=== PATIENT | female | born 1970 | race Caucasian/White ===

== ENCOUNTER 2017-11-24 18:57 | Emergency (ER) | payer OTHER ==
[2017-11-24 19:10] VITALS: TEMP 97.4
[2017-11-24] MEDS ORDERED: cloNIDine HCL 0.1 MG TAB PO STA (19:32)
--- NOTE | 2017-11-24 19:35 | ED ---
General Adult HPI - General Chief complaint: ENT Stated complaint: RT EYE PROBLEM Time Seen by Provider: 11/24/17 19:13 Source: patient Mode of arrival: ambulatory Limitations: no limitations - History of Present Illness Initial comments: 47-year-old female presents to the emergency department today for subconjunctival hemorrhage of the right eye. Patient states she was sick last week and had a bad cough. Patient states she was sitting at the table today when she looked down and her daughter noticed a red spot in her eye. She had not noticed it before because it is covered by her upper lid. Patient denies any visual changes, headaches, pain in the eye, or irritative symptom of the eye. Patient states she is not taking blood thinners. Patient states her blood pressure usually runs a little high and she was on blood pressure meds 20 years ago. Patient denies shortness of breath and chest pain. - Related Data Previous Rx's Medication Instructions Recorded Docusate [Colace] 100 mg PO DAILY #30 capsule 09/26/14 Hydrocortisone [Anusol-Hc] 1 applic RC TID #30 cream..g. 09/26/14 Magnesium Citrate [Citrate of 296 ml PO ONCE #1 bottle 09/27/14 Magnesia] Lisinopril [Prinivil] 5 mg PO DAILY #30 tablet 11/24/17 Allergies Allergy/AdvReac Type Severity Reaction Status Date / Time No Known Allergies Allergy Verified 11/24/17 19:10 Review of Systems ROS Statement: Those systems with pertinent positive or pertinent negative responses have been documented in the HPI. ROS Other: All systems not noted in ROS Statement are negative. Past Medical History Past Medical History: Hypertension Additional Past Medical History / Comment(s): hemorrhoids History of Any Multi-Drug Resistant Organisms: None Reported Past Surgical History: Orthopedic Surgery, Tubal Ligation Additional Past Surgical History / Comment(s): right leg ORIF. Past Psychological History: No Psychological Hx Reported Smoking Status: Never smoker Past Alcohol Use History: None Reported Past Drug Use History: None Reported General Exam Limitations: no limitations Head exam: Present: atraumatic, normocephalic, normal inspection Eye exam: Present: PERRL, EOMI, other (Patient has a 1 cm subconjunctival hemorrhage on the sclera of the right eye at 10-11 o'clock. No other abnormalities noted. Pupil and iris are intact.). Absent: scleral icterus, nystagmus, periorbital swelling, periorbital tenderness ENT exam: Present: normal exam, mucous membranes moist Neck exam: Present: normal inspection. Absent: tenderness, meningismus, lymphadenopathy Respiratory exam: Present: normal lung sounds bilaterally. Absent: respiratory distress, wheezes, rales, rhonchi, stridor Cardiovascular Exam: Present: regular rate, normal rhythm, normal heart sounds. Absent: systolic murmur, diastolic murmur, rubs, gallop, clicks Course Vital Signs 11/24/17 11/24/17 11/24/17 19:06 19:31 20:12 Temperature 97.4 F L Pulse Rate 87 73 Respiratory 16 16 Rate Blood Pressure 181/89 178/88 171/99 O2 Sat by Pulse 100 Oximetry 11/24/17 20:31 Temperature Pulse Rate 75 Respiratory 20 Rate Blood Pressure 157/83 O2 Sat by Pulse Oximetry Medical Decision Making - Medical Decision Making 37-year-old female presents the emergency department for subconjunctival hemorrhage in the right eye. Patient states she was sick last week and was coughing frequently. Patient denies being on blood thinners. Subconjunctival hemorrhage is consistent with coughing fit, however patient's blood pressure was high today. Patient states her blood pressure is often high. Today it is in the 170s - 180s/80s. Patient denies shortness of breath or chest pain. Denies headache or visual changes. Patient states there is no pain in the eye. Patient was given 0.1 mg of clonidine. After the clonidine was administered patient's blood pressure was 171/99 40 minutes later. At discharge blood pressure was noted at 157/93. Patient was given 5 mg lisinopril for 30 days. Patient was advised to follow-up with primary care provider for blood pressure management and a recheck of the subconjunctival hemorrhage. She will return to the ER if she notices changes in vision or starts experiencing headaches. Disposition Clinical Impression: Subconjunctival hemorrhage Disposition: HOME SELF-CARE Condition: Good Instructions: Subconjunctival Hemorrhage (ED), Hypertension (ED) Additional Instructions: Please follow up with primary care provider to discuss blood pressure management. Please follow-up with primary care provider to reevaluate subconjunctival hemorrhage in one to 2 days. Please return to ER if symptoms worsen, or vision changes, or you begin to develop headaches. Prescriptions: Lisinopril [Prinivil] 5 mg PO DAILY #30 tablet Referrals: Philip Tobias MD [Primary Care Provider] - 1-2 days Time of Disposition: 19:35
[2017-11-24 20:32] VITALS: BP 157/83; PULSE 75; RESP 20
== END 2017-11-24 20:31 | disposition home or self-care (01) ==
LOC: EC 18:57
DX: H11.31 Conjunctival hemorrhage, right eye (principal); I10 Essential (primary) hypertension; R05 Cough
CPT/HCPCS: 99283

== ENCOUNTER 2020-06-06 21:01 | Emergency (ER) | payer OTHER ==
[2020-06-06 21:09] VITALS: RESP 18
[2020-06-06] MEDS ORDERED: ACETAMINOPHEN TAB 500 MG TAB PO STA (21:31)
--- NOTE | 2020-06-06 21:46 | XR ---
EXAMINATION TYPE: XR knee complete RT DATE OF EXAM: 06/06/2020 COMPARISON: NONE HISTORY: Knee pain. Injury. TECHNIQUE: 2 views FINDINGS: Joint spaces appear normal. I see no fracture nor dislocation. There is minor spurring at t he tibial tubercle. There is no definite joint effusion. IMPRESSION: No acute bony abnormality. Normal joint spaces.
--- NOTE | 2020-06-06 21:48 | ED ---
Lower Extremity Injury HPI - General Source: patient Mode of arrival: wheelchair Limitations: no limitations <Garry Gonzales - Last Filed: 06/06/20 21:49> <Amrita Villanueva - Last Filed: 06/07/20 13:11> - General Chief Complaint: Extremity Injury, Lower Stated Complaint: R Leg Pain Time Seen by Provider: 06/06/20 21:18 - History of Present Illness Initial Comments: Patient is a 49-year-old female presenting to emergency Department with a chief complaint of right knee pain. Patient reports yesterday she twisted her knee while she was lifting a heavy object at work. States this was a valgus force on the knee. Afterwards, patient went home and felt better until today when she had a similar twisting like injury area states most of the pain is located in the popliteal region. Patient reports the pain is worse whenever she is ambulating and better at rest. Denies any calf tenderness. Denies any chest pa in or shortness of breath. Denies taking medication to alleviate the symptoms. Patient does have right knee arthroplasty and is concerned the hardware may be affect. Denies any numbness or tingling. (Garry Gonzales) - Related Data Previous Rx's Medication Instructions Recorded Docusate [Colace] 100 mg PO DAILY #30 capsule 09/26/14 Hydrocortisone [Anusol-Hc] 1 applic RC TID #30 cream..g. 09/26/14 Magnesium Citrate [Citrate of 296 ml PO ONCE #1 bottle 09/27/14 Magnesia] lisinopriL [Prinivil] 5 mg PO DAILY #30 tablet 11/24/17 Allergies Allergy/AdvReac Type Severity Reaction Status Date / Time No Known Allergies Allergy Verified 06/06/20 21:09 Review of Systems ROS Other: All systems not noted in ROS Statement are negative. <Garry Gonzales - Last Filed: 06/06/20 21:49> ROS Other: All systems not noted in ROS Statement are negative. <Amrita Villanueva - Last Filed: 06/07/20 13:11> ROS Statement: Those systems with pertinent positive or pertinent negative responses have been documented in the HPI. Past Medical History Past Medical History: Hypertension Additional Past Medical History / Comment(s): hemorrhoids History of Any Multi-Drug Resistant Organisms: None Reported Past Surgical History: Orthopedic Surgery, Tubal Ligation Additional Past Surgical History / Comment(s): right leg ORIF. Past Psychological History: No Psychological Hx Reported Smoking Status: Never smoker Past Alcohol Use History: None Reported Past Drug Use History: None Reported <Garry Gonzales - Last Filed: 06/06/20 21:49> General Exam Limitations: no limitations General appearance: alert, in no apparent distress, obese Head exam: Present: atraumatic, normocephalic, normal inspection Eye exam: Present: normal appearance, PERRL, EOMI Pupils: Present: normal accommodation ENT exam: Present: normal exam, normal oropharynx, mucous membranes moist, TM's normal bilaterally, normal external ear exam Neck exam: Present: normal inspection, full ROM. Absent: tenderness Respiratory exam: Present: normal lung sounds bilaterally. Absent: respiratory distress, wheezes, rhonchi, stridor Cardiovascular Exam: Present: regular rate, normal rhythm, normal heart sounds Extremities exam: Present: normal inspection (Excessive body habitus), full ROM, tenderness (Tenderness along the popliteal region of the knee. Some mild tenderness in the infrapatellar region on the right knee as well.), normal capillary refill, other (+2 dorsalis pedis and posterior tibialis bilaterally. Negative anterior drawer. Negative Sammi). Absent: pedal edema, joint swelling, calf tenderness Back exam: Present: normal inspection, full ROM. Absent: tenderness, CVA tenderness (R), CVA tenderness (L) Neurological exam: Present: alert, oriented X3 Psychiatric exam: Present: normal affect, normal mood Skin exam: Present: warm, dry, intact, normal color <Garry Gonzales - Last Filed: 06/06/20 21:49> Course Vital Signs 06/06/20 06/06/20 21:05 22:35 Temperature 97.9 F 98.0 F Pulse Rate 92 89 Respiratory 18 18 Rate Blood Pressure 171/96 168/95 O2 Sat by Pulse 97 97 Oximetry Medical Decision Making <Garry Gonzales - Last Filed: 06/06/20 21:49> <Amrita Villanueva - Last Filed: 06/07/20 13:11> - Medical Decision Making Patient is a 41-year-old female presenting to the emergency department with chief complaint right knee pain. On Physical examination, patient has tendernes s along the popliteal region and infrapatellar region. X-ray reveals no acute fracture or dislocations. I suspect patient suffered a knee sprain. She was advised to alternate between Tylenol and Motrin for pain control. She was also advised to follow with an erp specialist. Strict return parameters were thoroughly discussed the patient was understanding and agreeable. Case discussed with physician. (Garry Gonzales) I was available for consultation in the emergency department. The history and physical exam were done by the midlevel provider. I was consulted for this patients care. I reviewed the case with the midlevel provider and based on their presentation of the patient, I agree with the assessment, medical decision making and plan of care as documented. Chart was dictated using [employer] dictation software. Attempts were made to correct any dictation errors however some typographical errors may persist. Patient was seen during a national state of emergency due to the Covid-19 pandemic. (Amrita Villanueva) Disposition Is patient prescribed a controlled substance at d/c from ED?: No Time of Disposition: 21:51 <Garry Gonzales - Last Filed: 06/06/20 21:49> <Amrita Villanueva - Last Filed: 06/07/20 13:11> Clinical Impression: Right knee sprain, Right knee pain Disposition: HOME SELF-CARE Condition: Stable Instructions (If sedation given, give patient instructions): Knee Sprain (ED) Additional Instructions: Follow-up with erp specialist. Return to emergency department if symptoms worsen. Alternate between Tylenol and Motrin for pain control. Keep the leg elevated and apply ice compress. Referrals: Philip Tobias MD [Primary Care Provider] - 1-2 days
[2020-06-06 22:45] VITALS: BP 168/95; PULSE 89; TEMP 98
== END 2020-06-06 22:35 | disposition home or self-care (01) ==
LOC: EC 21:01
DX: S83.8X1A Sprain of other specified parts of right knee, initial encounter (principal); Z98.890 Other specified postprocedural states; X50.0XXA Overexertion from strenuous movement or load, initial encounter; Y93.89 Activity, other specified; Y92.69 Other specified industrial and construction area as the place of occurrence of the external cause; Y99.0 Civilian activity done for income or pay
CPT/HCPCS: 99283

== ENCOUNTER → 2023-04-16 | Outpatient (CLI) | payer BC ==
--- NOTE | 2023-04-16 10:50 | XR ---
EXAMINATION TYPE: XR ankle complete RT DATE OF EXAM: 04/16/2023 COMPARISON: None at this location HISTORY: Pain TECHNIQUE: 3 view right ankle FINDINGS: There is an oblique fracture to the distal metaphyseal fibula. This is below the previous r eduction internal fixation plate and screws of an old distal fibular fracture right current fracture line appears uninvolved with the plate and screws. There is a subtle lucency within the medial malleolus. Nondisplaced fracture is not entirely excluded . This may be curvilinear and round and not identified on additional images and potentially could be artifactual. Diffuse soft tissue swelling is present. The ankle mortise is intact. IMPRESSION: 1. New acute oblique fracture distal metaphyseal fibula below a prior open reduction internal fixati on plate and screws. 2. Occult fracture of the medial malleolus is not entirely excluded. This could be artifact.
== END | disposition home or self-care (01) ==
LOC: RADXRMAIN 10:01
PROVIDERS: ATTEND Family Medicine
DX: S82.831A Other fracture of upper and lower end of right fibula, initial encounter for closed fracture (principal); X58.XXXA Exposure to other specified factors, initial encounter